=== PATIENT | female | born 1935 | race African-American/Black ===

== ENCOUNTER 2021-10-12 12:31 | Emergency (ER) | payer OTHER, MEDICAID ==
[~2021-10-12] VITALS: Ht 162.6 cm; Wt 57.0 kg
[2021-10-12 13:36] LABS: BASOPHILS % 0.4 % (0.0-2.0); HEMATOCRIT. 30.6 % (36.0-48.0); HEMOGLOBIN. 9.7 g/dL (12.0-16.0); LYMPHOCYTES % 11.2 % (20.0-50.0); MEAN CORPUSCULAR HEMOGLOBIN 28.5 pg (28.0-32.0); MEAN CORPUSCULAR VOLUME 90.1 fL (81.0-99.0); MEAN PLATELET VOLUME 7.3 fl (7.4-10.4); MONOCYTES % 10.1 % (2.0-8.0); NEUTROPHILS % 77.3 % (40.0-76.0); PLATELET 345 x1000/uL (130-400); RED BLOOD CELL COUNT 3.39 mill/uL (4.2-5.4); RED CELL DISTRIBUTION WIDTH 13.8 % (11.6-14.6)
[2021-10-12 13:42] LABS: CHLORIDE 99 mEq/L (98-107)
[2021-10-12] MEDS ORDERED: IPRATROPIUM BROMIDE (0.02%) 0.5MG/2.5ML NEB HHN STA (16:11)
[2021-10-12] MEDS ORDERED: METHYLPREDNISOLONE SOD SUCC 125 MG/2 ML VIAL IV STA (16:11)
[2021-10-12] MEDS ORDERED: ALBUTEROL (0.083%) 2.5MG/3ML NEB HHN STA (16:11)
[2021-10-12] MEDS ORDERED: P50 MT (21:32)
[2021-10-12] MEDS ORDERED: ACETAMINOPHEN 325MG TABLET PO PRN ×2 (21:45)
[2021-10-12] MEDS ORDERED: CLONIDINE 0.1MG TABLET PO PRN (21:45)
[2021-10-12] MEDS ORDERED: MAGNESIUM/ALUMINUM HYDROXIDE/SIMETHICONE 30ML UDC PO PRN (21:45)
[2021-10-12] MEDS ORDERED: ENOXAPARIN 40MG/0.4ML SYR SUBCUT SCH (21:45)
[2021-10-12] MEDS ORDERED: IPRATROPIUM/ALBUTEROL 0.5-3(2.5)MG/3ML NEB NEB PRN (21:45)
[2021-10-12] MEDS ORDERED: IPRATROPIUM/ALBUTEROL 0.5-3(2.5)MG/3ML NEB HHN SCH (21:45)
[2021-10-12] MEDS ORDERED: GUAIFENESIN 200MG/10ML SUGAR FREE UDC PO PRN (21:45)
[2021-10-12] MEDS ORDERED: LEVOFLOXACIN 500MG PREMIX 100 ML IV SCH (21:45)
[2021-10-12] MEDS ORDERED: ONDANSETRON HCL 4MG/2ML INJ IV PRN (21:45)
[2021-10-12] MEDS ORDERED: NITROGLYCERIN 0.4MG TABLET SL SL PRN (21:45)
[2021-10-12] MEDS ORDERED: DOCUSATE SODIUM 100MG CAPSULE PO PRN (21:45)
[2021-10-12] MEDS ORDERED: ZOLPIDEM TARTRATE 5MG TABLET PO PRN (21:45)
[2021-10-12] MEDS ORDERED: TRAMADOL 50MG TABLET PO PRN (21:55)
[2021-10-12] MEDS ORDERED: METHYLPREDNISOLONE SOD SUCC 125 MG/2 ML VIAL IV SCH (22:00)
[2021-10-12 22:35] LABS: FOLIC ACID (FOLATE) SERUM >20 ng/mL ng/mL (>5.38)
[2021-10-12 22:56] LABS: VITAMIN B12 SERUM 642 pg/mL (211-911)
[2021-10-12] MEDS ORDERED: IOHEXOL-350 100 ML BOTTLE ONE (23:24)
[2021-10-13] VITALS: BP 132/68
[2021-10-13] MEDS ORDERED: DILTIAZEM HCL 60MG TABLET PO SCH
[2021-10-13] MEDS ORDERED: FAMOTIDINE 20MG TABLET PO SCH (09:00)
[2021-10-13] MEDS ORDERED: CHOLECALCIFEROL (D3) 1000 UNIT TABLET PO SCH (09:00)
[2021-10-13] MEDS ORDERED: ASCORBIC ACID 500 MG TABLET PO SCH (09:00)
[2021-10-13] MEDS ORDERED: ASPIRIN 325MG EC TABLET PO SCH (09:00)
[2021-10-13] MEDS ORDERED: ZINC SULFATE 220 MG ( 50 ) CAPSULE PO SCH (09:00)
[2021-10-14] MEDS ORDERED: LEVOFLOXACIN 500MG PREMIX 100 ML IV SCH (21:00)
== END 2021-10-13 | disposition home or self-care (01) ==
LOC: ER 12:31 → SUPCPDRO 21:30 → ER 10-13 → CANBEDREQ 10-13 16:15
DX: J44.1 Chronic obstructive pulmonary disease with (acute) exacerbation (principal); J96.01 Acute respiratory failure with hypoxia; E44.1 Mild protein-calorie malnutrition; R79.89 Other specified abnormal findings of blood chemistry; I25.10 Atherosclerotic heart disease of native coronary artery without angina pectoris; I11.9 Hypertensive heart disease without heart failure; E78.00 Pure hypercholesterolemia, unspecified; I82.409 Acute embolism and thrombosis of unspecified deep veins of unspecified lower extremity; Z87.891 Personal history of nicotine dependence; Z89.611 Acquired absence of right leg above knee; Z79.899 Other long term (current) drug therapy; Z98.890 Other specified postprocedural states; Z20.822 Contact with and (suspected) exposure to COVID-19
CPT/HCPCS: 36415; 71045; 71275; 80053; 82607; 82746; 83540; 83550; 83880; 84443; 84484; 85025; 87426; 93005; 94640; 96374; 99285; J2930; Q9967

== ENCOUNTER 2021-11-22 19:23 | Inpatient (IN) | payer OTHER, MEDICAID ==
[~2021-11-22] VITALS: Ht 167.6 cm; Wt 46.4 kg
[~2021-11-22 19:23] MED LIST: P50 MT
[2021-11-22] MEDS ORDERED: ALBUTEROL (0.083%) 2.5MG/3ML NEB HHN STA (21:02)
[2021-11-22] MEDS ORDERED: ASPIRIN 81MG TABLET PO ONE (21:15)
[2021-11-22 21:41] LABS: BASOPHILS % 0.7 % (0.0-2.0); EOSINOPHILS % 0.4 % (0.0-5.0); HEMATOCRIT. 23.8 % (36.0-48.0); HEMOGLOBIN. 7.4 g/dL (12.0-16.0); LYMPHOCYTES % 7.7 % (20.0-50.0); MEAN CORPUSCULAR HEMOGLOBIN 28.2 pg (28.0-32.0); MEAN CORPUSCULAR VOLUME 90.3 fL (81.0-99.0); MEAN PLATELET VOLUME 7.7 fl (7.4-10.4); MONOCYTES % 9.6 % (2.0-8.0); NEUTROPHILS % 81.6 % (40.0-76.0); PLATELET 331 x1000/uL (130-400); RED BLOOD CELL COUNT 2.64 mill/uL (4.2-5.4); RED CELL DISTRIBUTION WIDTH 17.3 % (11.6-14.6)
[2021-11-22 21:50] LABS: CHLORIDE 98 mEq/L (98-107)
[2021-11-22] MEDS ORDERED: METHYLPREDNISOLONE SOD SUCC 125 MG/2 ML VIAL IV STA (23:23)
[2021-11-23] MEDS ORDERED: ALBUTEROL (0.083%) 2.5MG/3ML NEB HHN ONE (02:45)
[2021-11-23] MEDS ORDERED: MAGNESIUM 2 G PREMIX 50 ML IV ONE (03:15)
[2021-11-23] MEDS ORDERED: ONDANSETRON HCL 4MG/2ML INJ IV PRN (11:00)
[2021-11-23] MEDS ORDERED: IPRATROPIUM/ALBUTEROL 0.5-3(2.5)MG/3ML NEB HHN PRN (11:00)
[2021-11-23] MEDS ORDERED: HYDROCODONE/ACETAMINOPHEN 5/325MG TABLET PO PRN (11:00)
[2021-11-23] MEDS ORDERED: NALOXONE HCL 0.4MG/ML VIAL IV PRN (11:15)
[2021-11-23] MEDS ORDERED: DEXTROSE 50% WATER 50ML SYRINGE IV PRN (11:30)
[2021-11-23 11:34] LABS: CHLORIDE 99 mEq/L (98-107)
[2021-11-23 12:00] VITALS: BP 138/63
[2021-11-23] MEDS: BLOOD SUGAR DIAGNOSTIC STRIP TEST SCH ×4 (12:20→21:17)
[2021-11-23] MEDS: INSULIN LISPRO 100 UNITS/ML SUBCUT SCH ×3 (12:50→21:00)
[2021-11-23] MEDS: IPRATROPIUM/ALBUTEROL 0.5-3(2.5)MG/3ML NEB HHN SCH (13:02)
[2021-11-23] MEDS: METHYLPREDNISOLONE SOD SUCC 40 MG/ML VIAL IV SCH ×2 (13:45→21:22)
[2021-11-23 16:00] VITALS: BP 127/64
[2021-11-23 16:34] LABS: BASOPHILS % 0.4 % (0.0-2.0); HEMATOCRIT. 22.8 % (36.0-48.0); HEMOGLOBIN. 7.5 g/dL (12.0-16.0); LYMPHOCYTES % 8.3 % (20.0-50.0); MEAN CORPUSCULAR VOLUME 90.9 fL (81.0-99.0); MEAN PLATELET VOLUME 8.4 fl (7.4-10.4); MONOCYTES % 6.7 % (2.0-8.0); NEUTROPHILS % 84.6 % (40.0-76.0); PLATELET 380 x1000/uL (130-400); RED BLOOD CELL COUNT 2.51 mill/uL (4.2-5.4); RED CELL DISTRIBUTION WIDTH 17.3 % (11.6-14.6)
[2021-11-23 16:38] LABS: CHLORIDE 97 mEq/L (98-107)
[2021-11-23 17:08] LABS: BG BASE EXCESS 9.7 mmol/L (-2.0-2.0); BG CARBOXYHEMOGLOBIN 1.7 % (0.5-1.5); BG DEOXYHEMOGLOBIN 3.4 % (0.0-5.0); BG FRACTION INSPIRED OXYGEN 40; BG HCO3 ACT 35.1 mmol/L (22.0-26.0); BG METHEMOGLOBIN 0.8 % (0.0-1.5); BG OXYGEN SATURATION 96.5 % (92.0-98.5); BG OXYHEMOGLOBIN 94.1 % (94.0-97.0); BG PCO2 55.3 mmHg (35.0-45.0); BG PH 7.421 (7.350-7.450); BG PO2 82.3 mmHg (75.0-100.0); BG SAMPLE SITE RIGHT BRACHIAL; BG VENT MODE NASAL CANNULA
[2021-11-23 20:00] VITALS: BP 113/60
[2021-11-23] MEDS: ALPRAZOLAM 0.5 MG TABLET PO PRN (21:22)
[2021-11-24] VITALS: BP 119/55
[2021-11-24 04:00] VITALS: BP 158/69
[2021-11-24] MEDS: METHYLPREDNISOLONE SOD SUCC 40 MG/ML VIAL IV SCH ×2 (05:52→14:12)
[2021-11-24 06:57] LABS: CHLORIDE 101 mEq/L (98-107)
[2021-11-24 07:04] LABS: MEAN CORPUSCULAR HEMOGLOBIN 29.9 pg (28.0-32.0); MEAN CORPUSCULAR VOLUME 91.6 fL (81.0-99.0); MEAN PLATELET VOLUME 8.2 fl (7.4-10.4); PLATELET 380 x1000/uL (130-400); RED BLOOD CELL COUNT 2.26 mill/uL (4.2-5.4); RED CELL DISTRIBUTION WIDTH 17.9 % (11.6-14.6)
[2021-11-24 07:17] LABS: LDL CHOLESTEROL 78 mg/dL (5-100)
[2021-11-24 07:19] LABS: HDL CHOLESTEROL 65 mg/dL (40-59)
[2021-11-24] MEDS: INSULIN LISPRO 100 UNITS/ML SUBCUT SCH ×4 (07:50→21:00)
[2021-11-24 08:00] VITALS: BP 118/59
[2021-11-24 08:08] LABS: HEMATOCRIT. 20.7 % (36.0-48.0); HEMOGLOBIN. 6.8 g/dL (12.0-16.0)
[2021-11-24] MEDS: IPRATROPIUM/ALBUTEROL 0.5-3(2.5)MG/3ML NEB HHN SCH ×3 (10:29→22:01)
[2021-11-24 12:10] VITALS: BP 121/62
[2021-11-24] MEDS: BLOOD SUGAR DIAGNOSTIC STRIP TEST SCH ×3 (12:20→21:50)
[2021-11-24 16:00] VITALS: BP 145/66
[2021-11-24 18:02] LABS: PLATELET ESTIMATE NORMAL
[2021-11-24 18:10] LABS: TOTAL IRON BINDING CAPACITY 246 ug/dL (250-450)
[2021-11-24] MEDS: PREDNISONE 20MG TABLET PO SCH (18:45)
[2021-11-24 19:23] LABS: VITAMIN B12 SERUM 1008 pg/mL (211-911)
[2021-11-24 20:00] VITALS: BP 135/69
[2021-11-24] MEDS: ALPRAZOLAM 0.5 MG TABLET PO PRN (21:51)
[2021-11-24] MEDS: BUDESONIDE 0.5MG/2ML NEB HHN SCH (22:01)
[2021-11-25] VITALS (11 sets, daily range): BP systolic 96–135; BP diastolic 54–91
[2021-11-25] MEDS ORDERED: BENZ-16 PO (06:26)
[2021-11-25] MEDS ORDERED: PRAV40TA58 MT (06:26)
[2021-11-25] MEDS ORDERED: AMLO10TA4 MT (06:27)
[2021-11-25] MEDS ORDERED: FAMO-135 MT (06:27)
[2021-11-25] MEDS ORDERED: ASPI81TA47 MT (06:28)
[2021-11-25] MEDS: BLOOD SUGAR DIAGNOSTIC STRIP TEST SCH ×3 (06:53→17:30)
[2021-11-25 07:13] LABS: BASOPHILS % 0.1 % (0.0-2.0); HEMATOCRIT. 29.5 % (36.0-48.0); HEMOGLOBIN. 9.6 g/dL (12.0-16.0); LYMPHOCYTES % 7.6 % (20.0-50.0); MEAN CORPUSCULAR VOLUME 92.2 fL (81.0-99.0); MONOCYTES % 10.3 % (2.0-8.0); PLATELET 392 x1000/uL (130-400); RED CELL DISTRIBUTION WIDTH 16.9 % (11.6-14.6)
[2021-11-25] MEDS: INSULIN LISPRO 100 UNITS/ML SUBCUT SCH ×3 (07:50→17:32)
[2021-11-25] MEDS: PREDNISONE 20MG TABLET PO SCH ×2 (09:13→17:34)
[2021-11-25] MEDS: BUDESONIDE 0.5MG/2ML NEB HHN SCH (10:29)
[2021-11-25] MEDS ORDERED: P20 PO (17:28)
[2021-11-25] MEDS ORDERED: PULM50 HHN (17:28)
[2021-11-25] MEDS ORDERED: IPRA3AMP9 HHN (17:28)
== END 2021-11-25 20:45 | disposition home or self-care (01) | DRG 189 ==
LOC: ER 19:23 → 6WST 11-23 01:52 → EDBEDREQ 11-23 01:53 → CANRESERV 11-23 09:43 → ENRESERV 11-23 09:43
PROVIDERS: ADMIT Family Medicine; ATTEND Family Medicine
PROC: 30233N1 Transfusion of Nonautologous Red Blood Cells into Peripheral Vein, Percutaneous Approach (ICD-10-PCS; principal; 2021-11-25)
DX: J96.01 Acute respiratory failure with hypoxia (principal); J44.1 Chronic obstructive pulmonary disease with (acute) exacerbation; E44.0 Moderate protein-calorie malnutrition; I50.42 Chronic combined systolic (congestive) and diastolic (congestive) heart failure; Z68.1 Body mass index [BMI] 19.9 or less, adult; I11.0 Hypertensive heart disease with heart failure; D64.9 Anemia, unspecified; I27.20 Pulmonary hypertension, unspecified; D72.829 Elevated white blood cell count, unspecified; E78.00 Pure hypercholesterolemia, unspecified; E11.51 Type 2 diabetes mellitus with diabetic peripheral angiopathy without gangrene; Z20.822 Contact with and (suspected) exposure to COVID-19; E78.5 Hyperlipidemia, unspecified; Z99.81 Dependence on supplemental oxygen; Z89.612 Acquired absence of left leg above knee; Z87.891 Personal history of nicotine dependence
CPT/HCPCS: 36415; 36600; 71045; 80053; 80061; 82270; 82375; 82607; 82805; 82962; 83036; 83540; 83550; 83880; 84484; 85025; 86850; 86900; 86920; 87426; 93005; 93306; 93970; 94640; 99291; J1815; J2920; J2930; J3475; J7512; J7626; P9016